=== PATIENT | female | born 1945 | race Caucasian/White ===

== ENCOUNTER → 2018-02-20 | Day surgery (SDC) | payer MEDICARE, BC ==
[~2018-02-20] VITALS: Ht 160 cm; Wt 107.3 kg
[~2018-02-20] MED LIST: *HYDROmorphone PF 0.5 MG/0.5 ML PERIprocedure ONLY ONE; *RESP: ALBUTEROL 2.5 MG/3 ML NEB (PRN) PERIprocedural Use ONLY NEB ONE; ACETAMINOPHEN 1000 MG/100 ML 100 ML IV ONE; ACETAMINOPHEN/HYDROcodone 325 MG/5 MG TAB PO PRN; ADVA250A INH; ATEN25TA PO; BUPIVACAINE/EPINEPHRINE 0.5% PF 10 ML VIAL ONE; CHLORHEXIDINE GLUCONATE 2 % 1 PACK (2 CLOTHS) TOPICAL PRN; DEXAMETHASONE SOD PHOS 4 MG/ML VIAL IV ONE; DO NOT ADM ANY ANTICOAGULANT DRUGS PRN; ELMI100C PO; FAMOTIDINE 20 MG/2 ML VIAL ONE; GLIP1TAB52 PO; GLYCOPYRROLATE 1 MG/5 ML SYRINGE IV PUSH ONE; HYDR-3580 PO; IBUP1TAB5 PO; INSULIN HUMAN REGULAR 1,000 UNITS/10 ML VIAL SQ PRN; LABETALOL HCL 100 MG/20 ML VIAL IV ONE; LACTATED RINGER'S 1000 ML IV PRN; LANTUS2P SQ; LEVO.05 PO; LEVS0.124 SL; LIDO1ADH4 TOPICAL; LIDOCAINE 0.5%/EPINEPHrine 1:200,000 SOLN 50 ML VIAL ONE; LIDOCAINE HCL 1% PF 5 ML SYRINGE OTHER ONE; LIPI40TA PO; LISI10TA3 PO; LYRI100C PO; METOPROLOL TARTRATE 25 MG TAB PO PRN; NEOSTIGMINE 5 MG/5 ML SYRINGE IV PUSH ONE; ONDANSETRON HCL 4 MG/2 ML VIAL IV ONE; PHEN95TA PO; PHENYLEPH/NS 1000 MCG/10 ML SYR IV ONE; POVIDONE IODINE 5% (ANTISEPSIS KIT) 4 APPLICATIONS EACH NARE PRN; PRAD150C PO; PROPOFOL 200 MG/20 ML AMP IV ONE; ROCURONIUM INJ 50 MG/5 ML SYRINGE IV PUSH ONE; SITA25 PO; SODIUM CHLORID 0.9% 500 ML IV PRN; SUCCINYLCHOLINE CHLORIDE 100 MG/5 ML SYRINGE IV PUSH ONE; TOPI100 PO; ceFAZolin INJ 1,000 MG VIAL IV ONE; ePHEDrine/NS 25 MG/5 ML SYRINGE IV ONE; metroNIDAZOLE 500 MG INJ 100 ML IV ONE
--- NOTE | 2018-02-20 16:32 | MP ---
cc: Rebeka Rai MD,Erika Ritter,Roberto Nicole, DATE OF OPERATION: 02/20/2018 PREOPERATIVE DIAGNOSIS: Rectal cancer. POSTOPERATIVE DIAGNOSIS: Rectal cancer. PROCEDURE PERFORMED: Transanal full-thickness resection of rectal cancer. SURGEON: Rebeka Rai MD ANESTHESIA: General per ET tube. ESTIMATED BLOOD LOSS: 25 mL OPERATIVE INDICATIONS: The patient is a 72-year-old female with a very low-lying anal cancer, which is just to the left of the posterior position just above the anal verge. OPERATIVE FINDINGS: A 2-3 cm ulcerated tumor, which was basically shaved off of the anal muscle posteriorly and deep down into the muscle. OPERATIVE COURSE: The patient was brought to the operating room, placed in the supine position. After induction of general anesthesia, the patient was turned to the prone position and all bony prominences were carefully padded. The skin of the buttocks was then gently taped apart. The perianal area was then prepped and draped in the usual sterile fashion. The cancer was easily palpated just above the anal verge posteriorly. A [place] retractor was then placed. After initial rectal block was performed with 1:1 mixture of 0.5% lidocaine with 1:100,000 epinephrine. The cancer was then carefully dissected free, it off of the anal muscle posteriorly and maintaining a 5 mm margin circumferentially around it, otherwise. The dissection was continued deep into the perirectal fat. After the specimen was removed, the right lateral side was marked with 1 suture and the proximal margin was marked with a double suture and sent for pathology. I did look at trying to take a little bit more of the distal margin, but it was really right off the anal muscle. Bleeding along the edge of the defect was then closed using electrocautery and the defect was closed in an interrupted [id number] fashion using 3-0 Vicryl. At the close, the suture line was examined and appeared healthy and intact. There were 2 small tears in the skin next to the anus that were controlled in a simple suture using 3-0 Vicryl. The patient tolerated the procedure well. All sponge, needle and instrument counts were correct, and the patient was returned to the postanesthesia care unit in a stable condition. MD DUSTIN Fenton , 03:41 PM , 04:31 PM
[2018-02-20 17:05] VITALS: BP 126/71; PULSE 68; RESP 20; TEMP 97.8; O2SAT 94
== END | disposition home or self-care (01) ==
LOC: HSDC 11:32
PROVIDERS: ATTEND Colon & Rectal Surgery
DX: C20 Malignant neoplasm of rectum (principal); I50.9 Heart failure, unspecified; I10 Essential (primary) hypertension; J45.909 Unspecified asthma, uncomplicated; E11.9 Type 2 diabetes mellitus without complications; E03.9 Hypothyroidism, unspecified
CPT/HCPCS: 00902; 45172; 88307; 94664; J0131; J0330; J0690; J1100; J1170; J2370; J2405; J2710; J3010; J7120; J7613; 88309